=== PATIENT | female | born 1940 | race Caucasian/White ===

== ENCOUNTER 2019-01-26 07:25 | Day surgery (SDC) | payer MEDICARE, OTHER ==
[~2019-01-26 07:25] MED LIST: Cefuroxime 10 MG/ML SYRINGE EYELF SCH; Lidocaine 1% PF 2 ML SDV INJECT SCH; Pilocarpine 4% Ophth Soln 15 ML Bot EYELF SCH
[2019-01-26] MEDS: Polymyxin B/Trimethoprim 10 ML Bottle EYELF SCH ×3 (07:52→09:38)
--- NOTE | 2019-01-26 07:58 | PCM.PREANE ---
Preanesthetic Assessment - Anesthesia/Transfusion/Family Hx Anesthesia History: Prior Anesthesia Reaction (PONV) Family History of Anesthesia Reaction: No Transfusion History: Prior Transfusion Without Reaction - Review of Systems General: No Symptoms Pulmonary: No Symptoms Cardiovascular: No Symptoms Gastrointestinal: No Symptoms Neurological: No Symptoms Other: Reports: None - Physical Assessment ASA Class: 2 Mental Status: Alert & Oriented x3 Airway Class: Mallampati = 1 Dentition: Reports: Dentures (upper), Partial (lower) Thyro-Mental Finger Breadths: 3 Mouth Opening Finger Breadths: 3 ROM/Head Extension: Full Lungs: Clear to Auscultation, Normal Respiratory Effort Cardiovascular: Regular Rate, Regular Rhythm - Allergies Allergies/Adverse Reactions: Allergies Allergy/AdvReac Type Severity Reaction Status Date / Time cephalexin Allergy Rash Verified 01/25/19 14:01 - Acknowledgements Anesthesia Type Planned: MAC Pt an Appropriate Candidate for the Planned Anesthesia: Yes Alternatives and Risks of Anesthesia Discussed w Pt/Guardian: Yes Pt/Guardian Understands and Agrees with Anesthesia Plan: Yes PreAnesthesia Questionnaire HEENT History: Reports: Cataract Cardiovascular History: Reports: High Cholesterol, Hypertension Respiratory History: Reports: Asthma (pt states well controlled with inhaler) Gastrointestinal History: Reports: Diverticulosis Genitourinary History: Reports: None Musculoskeletal History: Reports: Arthritis, Back Pain, Chronic Neurological History: Reports: None Psychiatric History: Reports: Anxiety Endocrine/Metabolic History: Reports: Hypothyroidism - Past Surgical History HEENT Surgical History: Reports: Cataract Surgery Cardiovascular Surgical History: Reports: Pacer (for bradycardia-Mar 2016) Musculoskeletal Surgical History: Reports: Hip Replacement, Knee Replacement, Other (See Below) (mehran) - HOME MEDS Home Medications: Home Meds Citalopram Hydrobromide [Celexa] 20 mg PO DAILY 08/24/14 [History] Enalapril Maleate 30 mg PO DAILY 08/24/14 [History] hydroCHLOROthiazide [Hydrochlorothiazide] 12.5 mg PO DAILY 08/24/14 [History] Albuterol [Ventolin HFA] 2 puff INH QID 03/27/16 [History] atorvaSTATin [Lipitor] 10 mg PO DAILY 03/27/16 [History] Albuterol [Ventolin 2 MG/5 ML] 1 dose NEB ASDIRECTED PRN 01/25/19 [History] Budesonide/Formoterol [Symbicort 160-4.5 MCG] 1 puff INH BID 01/25/19 [History] Levothyroxine 25 mg PO DAILY 01/25/19 [History] Polyvinyl Alcohol [Artificial Tears] 1 dose EYEBOTH ASDIRECTED 01/25/19 [History ] Verapamil HCl [Calan Sr] 180 mg PO DAILY 01/25/19 [History] - CURRENT (IN HOUSE) MEDS Current Meds: Current Medications Brimonidine Tartrate (Brimonidine Tartrate 0.2% Ophth Soln) 0 ml EYELF ASDIRECTED DENISE Stop: 01/26/19 18:00 Cefuroxime Sodium (Zinacef) 0 mg EYELF ASDIRECTED DENISE Stop: 01/26/19 18:00 Lidocaine HCl (Xylocaine-Mpf 1%) 0 ml INJECT ASDIRECTED DENISE Stop: 01/26/19 18:00 Phenylephrine HCl (Jose D-Synephrine 2.5% Ophth Soln) 0 ml EYELF ASDIRECTED DENISE Stop: 01/26/19 18:00 Pilocarpine HCl (Pilocar 4% Ophth Soln) 0 ml EYELF ASDIRECTED DENISE Stop: 01/26/19 18:00 Polymyxin/Trimethoprim Sulfate (Polytrim Ophth Soln) 0 ml EYELF ASDIRECTED DENISE Stop: 01/26/19 18:00 Tetracaine HCl (Tetracaine 0.5% Steri-Unit Silke) 0 ml EYELF ASDIRECTED DENISE Stop: 01/26/19 18:00 Tropicamide (Mydriacyl 1% Ophth Soln) 0 ml EYELF ASDIRECTED DENISE Stop: 01/26/19 18:00
[2019-01-26] MEDS: Brimonidine 0.2% Ophth Soln 15 ML Bottle EYELF SCH ×3 (08:01→09:38)
[2019-01-26] MEDS: Phenylephrine 2.5% Ophth Soln 2 ML Bot EYELF SCH ×5 (08:06→09:22)
[2019-01-26] MEDS: Tropicamide 1% Ophth Soln 15 ML Bottle EYELF SCH ×4 (08:10→08:50)
[2019-01-26] MEDS: Tetracaine HCl/PF 0.5% 4 ML Bottle EYELF SCH ×4 (08:58→09:32)
--- NOTE | 2019-01-26 09:40 | PCM48HPAN ---
Post Anesthesia Note - EVALUATION WITHIN 48HRS OF ANESTHETIC Vital Signs in Normal Range: Yes Patient Participated in Evaluation: Yes Respiratory Function Stable: Yes Airway Patent: Yes Cardiovascular Function Stable: Yes Hydration Status Stable: Yes Pain Control Satisfactory: Yes Nausea and Vomiting Control Satisfactory: Yes Mental Status Recovered: Yes Vital Signs: Last Vital Signs Temp 36.8 C 01/26/19 07:35 Pulse 82 01/26/19 07:35 Resp 16 01/26/19 07:35 BP 174/81 H 01/26/19 07:35 Pulse Ox 98 01/26/19 07:35
[2019-01-26 09:52] VITALS: BP 168/74
== END 2019-01-26 09:48 ==
LOC: JD.SDS 07:25
PROVIDERS: ATTEND Ophthalmology
DX: H25.812 Combined forms of age-related cataract, left eye (principal); M19.90 Unspecified osteoarthritis, unspecified site; J45.909 Unspecified asthma, uncomplicated; E78.00 Pure hypercholesterolemia, unspecified; I10 Essential (primary) hypertension; F41.9 Anxiety disorder, unspecified; E03.9 Hypothyroidism, unspecified; Z83.518 Family history of other specified eye disorder; Z79.2 Long term (current) use of antibiotics; Z79.899 Other long term (current) drug therapy
CPT/HCPCS: 66984; J2001; V2632